=== PATIENT | female | born 1985 | race American Indian/Alaskan Native ===

== ENCOUNTER 2020-02-29 17:18 | Emergency (ER) | payer SELFPAY ==
--- NOTE | 2020-02-29 18:16 | Emergency Department Report ---
ED General Adult HPI - General Chief complaint: Extremity Injury, Upper Stated complaint: RT THUMB INJURY/PAIN Time Seen by Provider: 02/29/20 17:45 Source: patient Mode of arrival: Ambulatory Limitations: No Limitations - History of Present Illness Initial comments: 34-year-old -Citizen Of [place] female presents to the emergency room complaining of right hand injury that happened on Monday. Patient states that she was playing with her kids and she was running upstairs to play hide and go seek when she fell up the steps and landed on her right hand. Patient states that the pain is still present the swelling has improved but still swollen. Patient was noted to have elevated blood pressure in triage and she states that she does not have a history of high blood pressure only when she is in pain. Blood pressure was 210/119. Patient reports a past medical history of asthma and diabetes. Patient reports that she is not able to check her diabetes secondary to uninsured. Patient denies any chest pain shortness of breath nausea vomiting or headache. - Related Data Home Medications Medication Instructions Recorded Confirmed Last Taken metFORMIN [Glucophage] 1,000 mg PO BID 05/06/14 05/28/14 05/27/14 Glimepiride 2 mg PO DAILY 05/23/14 05/28/14 05/27/14 Albuterol Sulfate [Ventolin Hfa] 2 puff IH PRN PRN 05/28/14 05/28/14 05/27/14 Fluticasone/Salmeterol [Advair 1 puff IH PRN PRN 05/28/14 05/28/14 05/21/14 Diskus 250-50 mcg] Previous Rx's Medication Instructions Recorded Last Taken Type HYDROcodone/APAP 5-325 [[place] 1 each PO Q6HR PRN #10 tablet 05/28/14 Unknown Rx 5-325 mg TAB] Metformin HCl [metFORMIN ER 1,000 mg PO BID 30 Days #60 02/29/20 Unknown Rx Osmotic] tab.er.24 amLODIPine 5 mg PO DAILY #30 tab 02/29/20 Unknown Rx hydroCHLOROthiazide 12.5 mg PO QDAY #30 capsule 02/29/20 Unknown Rx [Hydrochlorothiazide] Allergies Allergy/AdvReac Type Severity Reaction Status Date / Time Penicillins AdvReac Rash Verified 05/23/14 09:39 PPD Allergy Hives Uncoded 05/06/14 10:52 ED Review of Systems ROS: Stated complaint: RT THUMB INJURY/PAIN Other details as noted in HPI ED Past Medical Hx - Past Medical History Previous Medical History?: Yes Hx Diabetes: Yes (NIDDM <5 YEARS) Hx Asthma: Yes (LIFELONG DOES ELIJAH USE INHALER DENIES RECENT EPISODES) - Social History Smoking Status: Former Smoker Substance Use Type: None - Medications Home Medications: Home Medications Medication Instructions Recorded Confirmed Last Taken Type metFORMIN [Glucophage] 1,000 mg PO BID 05/06/14 05/28/14 05/27/14 History Glimepiride 2 mg PO DAILY 05/23/14 05/28/14 05/27/14 History Albuterol Sulfate [Ventolin Hfa] 2 puff IH PRN PRN 05/28/14 05/28/14 05/27/14 History Fluticasone/Salmeterol [Advair 1 puff IH PRN PRN 05/28/14 05/28/14 05/21/14 History Diskus 250-50 mcg] HYDROcodone/APAP 5-325 [[place] 1 each PO Q6HR PRN #10 tablet 05/28/14 Unknown Rx 5-325 mg TAB] Metformin HCl [metFORMIN ER 1,000 mg PO BID 30 Days #60 02/29/20 Unknown Rx Osmotic] tab.er.24 amLODIPine 5 mg PO DAILY #30 tab 02/29/20 Unknown Rx hydroCHLOROthiazide 12.5 mg PO QDAY #30 capsule 02/29/20 Unknown Rx [Hydrochlorothiazide] ED Physical Exam - General Limitations: No Limitations ED Course Vital Signs 02/29/20 02/29/20 02/29/20 17:26 18:10 19:36 Temperature 98.0 F Pulse Rate 110 H 105 H Respiratory 18 16 Rate Blood Pressure Blood Pressure 210/119 203/126 [Left] Blood Pressure [Right] O2 Sat by Pulse 98 Oximetry 02/29/20 02/29/20 02/29/20 19:37 20:01 20:50 Temperature 98.1 F Pulse Rate 100 H 95 H 89 Respiratory 18 18 Rate Blood Pressure 192/123 Blood Pressure [Left] Blood Pressure 224/140 166/106 [Right] O2 Sat by Pulse 98 98 Oximetry ED Medical Decision Making - Lab Data Result diagrams: 02/29/20 19:57 02/29/20 19:57 - Radiology Data Radiology results: report reviewed Referring Physician:KELLY VERDEPatient Name:EAGLE CORTESPatient ID:[id number] of :[id number]:FemaleAccession:[id number] Date:[id number] Status:Finalized Findings [facility] [address] [place] [address] XRay Report Signed Patient: EAGLE CORTES MR#: [id number] : 1985 Acct:[id number] Age/Sex: 34 / F ADM Date: 02/29/20 Loc: ED Attending Dr: Ordering Physician: ELVIRA ALVAREZ Date of Service: 02/29/20 Procedure(s): XR hand 3+V RT Accession Number(s): [id number] cc: ELVIRA ALVAREZ Fluoro Time In Minutes: Right hand-4 views INDICATION: thumb injury. COMPARISON: None. IMPRESSION: Mild soft tissue swelling overlying the thumb dorsally and radially with no acute fracture or malalignment. No significant DJD. Signer Name: Yobany Chang MD Signed: 02/29/2020 6:48 PM Workstation Name: [id number] Transcribed By: JW Dictated By: Yobany Chang MD Electronically Authenticated By: Yobany Chang MD Signed Date/Time: 02/29/201847 DD/ 47 TD/TT: - Medical Decision Making 34-year-old -Citizen Of [place] female presents to the emergency room complaining of right hand injury that happened on Monday. Patient states that she was playing with her kids and she was running upstairs to play hide and go seek when she fell up the steps and landed on her right hand. Patient states that the pa in is still present the swelling has improved but still swollen. Patient was noted to have elevated blood pressure in triage and she states that she does not have a history of high blood pressure only when she is in pain. Blood pressure was 210/119. Patient reports a past medical history of asthma and diabetes. Patient reports that she is not able to check her diabetes secondary to uninsured. Patient denies any chest pain shortness of breath nausea vomiting or headache. X-ray of right hand is pending. IV insertion with clonidine 0.2 mg p.o. we will recheck blood pressure in 1 hour. Blood sugar showed 385. Patient was initiated 1 L of fluid. Patient was also given labetalol 20 mg IV which brought patient's blood pressure down. Patient was ordered 3 units of regular insulin she refuses. I discussed with patient the importance of getting her blood sugar down. Patient endorsed to me today that at the end of our visit that she has not been on metformin for over a year. Discussed the patient I will place her back on metformin 1000 mg p.o. twice daily and she is to follow-up with a primary care provider which I am referring to Dr. Rosemary Hidalgo. Patient understands importance of taking her metformin and blood pressure medications. Critical care attestation.: If time is entered above; I have spent that time in minutes in the direct care of this critically ill patient, excluding procedure time. ED Disposition Clinical Impression: Hyperglycemia due to type 2 diabetes mellitus, Hypertensive urgency Sprain of right thumb Qualifiers: Encounter type: sequela Sprain of finger site: interphalangeal joint Qualified Code(s): S63.621S - Sprain of interphalangeal joint of right thumb, sequela Disposition: DC-01 TO HOME OR SELFCARE Is pt being admited?: No Does the pt Need Aspirin: No Condition: Stable Instructions: Finger Sprain (ED), Diabetes Mellitus Type 2 in Adults (ED) Additional Instructions: Please take blood pressure medications as prescribed. It is very important for you to follow a Dash diet which consists of low sodium more vegetables and fruit. You also need to follow a diabetic diet lose weight increase your water intake avoid sugary drinks, soda, high carbohydrate foods. You can take ibuprofen or Tylenol for pain management. Wear splint as needed for comfort. Follow-up with your primary care provider I have listed 1 below for your convenience. Prescriptions: amLODIPine 5 mg PO DAILY #30 tab hydroCHLOROthiazide [Hydrochlorothiazide] 12.5 mg PO QDAY #30 capsule Metformin HCl [metFORMIN ER Osmotic] 1,000 mg PO BID 30 Days #60 tab.er.24 Referrals: DENISE MILES MD [Primary Care Provider] - 3-5 Days JANE ROWAN MD [Staff Physician] - 3-5 Days Forms: Work/School Release Form(ED)
[2020-02-29] MEDS ORDERED: cloNIDine 0.2 MG TAB PO ONE (18:51)
--- NOTE | 2020-02-29 18:53 | XRay Report ---
Right hand-4 views INDICATION: thumb injury. COMPARISON: None. IMPRESSION: Mild soft tissue swelling overlying the thumb dorsally and radially with no acute fractu re or malalignment. No significant DJD. Signer Name: Yobany Chang MD Signed: 02/29/2020 6:48 PM Workstation Name: [email or web address] [id number]
[2020-02-29] MEDS ORDERED: cloNIDine 0.2 MG TAB ONE (18:54)
[2020-02-29] MEDS ORDERED: IBUPROFEN 600 MG TAB PO ONE (18:57)
[2020-02-29 20:13] LABS: Basophils # (Auto) 0.1 K/mm3 (0.0-0.1); Basophils % (Auto) 0.8 % (0.0-1.8); Eosinophils # (Auto) 0.2 K/mm3 (0.0-0.4); Eosinophils % (Auto) 2.5 % (0.0-4.3); Hemoglobin 13.4 gm/dl (10.1-14.3); Lymphocytes # (Auto) 2.7 K/mm3 (1.2-5.4); Monocytes # (Auto) 0.6 K/mm3 (0.0-0.8); Monocytes % (Auto) 7.2 % (0.0-7.3)
[2020-02-29 20:28] LABS: Mean Corpuscular HGB Conc 34 % (30-34); Mean Corpuscular Volume 93 fl (79-97); Platelet Count 320 K/mm3 (140-440); Red Blood Count 4.31 M/mm3 (3.65-5.03); Red Cell Distribution Width 13.7 % (13.2-15.2)
[2020-02-29 20:33] LABS: BUN/Creatinine Ratio 16; Blood Urea Nitrogen 8 mg/dL (7-17); Calcium 9.1 mg/dL (8.4-10.2); Hemolysis Index 8
[2020-02-29] MEDS ORDERED: SODIUM CHLORIDE 0.9% 1000 ML 1,000 ML IV ONE (20:44)
[2020-02-29 20:51] VITALS: BP 166/106
[2020-02-29 20:55] LABS: Bilirubin,Urine NEG (Negative); Blood,Urine NEG (Negative); Color,Urine Straw (Yellow); Urobilinogen,Urine < 2.0 mg/dL (<2.0)
[2020-02-29] MEDS ORDERED: INSULIN REGULAR, HUMAN 100 UNITS/1 ML SUB-Q ONE (21:41)
== END 2020-02-29 23:20 | disposition home or self-care (01) ==
LOC: ED 17:18
DX: S63.601A Unspecified sprain of right thumb, initial encounter (principal); E11.65 Type 2 diabetes mellitus with hyperglycemia; I16.0 Hypertensive urgency; J45.909 Unspecified asthma, uncomplicated; Z79.899 Other long term (current) drug therapy; Z88.0 Allergy status to penicillin; Z88.8 Allergy status to other drugs, medicaments and biological substances; W10.9XXA Fall (on) (from) unspecified stairs and steps, initial encounter; Y93.89 Activity, other specified; Y92.89 Other specified places as the place of occurrence of the external cause; Y99.8 Other external cause status
CPT/HCPCS: 36415; 73130; 80048; 81001; 82962; 85025; 96361; 96374; 99284; J7030; J1815

== ENCOUNTER 2020-03-25 16:00 | Emergency (ER) | payer OTHER ==
[2020-03-25 16:10] VITALS: BP 186/117
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
--- NOTE | 2020-03-25 17:40 | XRay Report ---
RIGHT WRIST 4 VIEWS INDICATION: pain to base of thumb after fall. COMPARISON: 02/29/2020 FINDINGS: No acute, displaced fracture or dislocation is seen. No foreign bodies. IMPRESSION: 1. No acute findings. Clinical suspicion for acute ligament injury is high, MRI should be considered . Signer Name: Grey Tovar MD Signed: 03/25/2020 5:21 PM Workstation Name: [id number]
== END 2020-03-25 17:53 | disposition home or self-care (01) ==
LOC: ED 16:00
DX: S39.012A Strain of muscle, fascia and tendon of lower back, initial encounter (principal); S16.1XXA Strain of muscle, fascia and tendon at neck level, initial encounter; S63.91XA Sprain of unspecified part of right wrist and hand, initial encounter; E11.9 Type 2 diabetes mellitus without complications; J45.909 Unspecified asthma, uncomplicated; Z98.890 Other specified postprocedural states; Z79.899 Other long term (current) drug therapy; Z88.0 Allergy status to penicillin; Z88.8 Allergy status to other drugs, medicaments and biological substances; V49.49XA Driver injured in collision with other motor vehicles in traffic accident, initial encounter; Y93.89 Activity, other specified; Y92.410 Unspecified street and highway as the place of occurrence of the external cause; Y99.8 Other external cause status